=== PATIENT | female | born 1970 | race Caucasian/White ===

== ENCOUNTER 2019-01-18 08:35 | Observation (INO) | payer BC ==
[~2019-01-18] VITALS: Ht 162.6 cm; Wt 76.2 kg
[~2019-01-18 08:35] MED LIST: ELAVIL75 MG OR; FLEXERIL OR; LORTAB 5 OR; MEDDOSEPAK OR; NAPROSYN500 MG OR; PROVENTIL INH17 GM IN; ROBAXIN250 MG OR; TESSALON200 MG OR; ZITHROMAX500 MG OR
[2019-01-18 09:39] LABS: HEMATOCRIT 43.8 % (37.0-47.0); HEMOGLOBIN 14.4 g/dl (12.0-16.0); IMMATURE GRANULOCYTES 0.4 % (0.0-5.0); MEAN CELL VOLUME 85.7 fL CALC (80.0-100.0); MEAN CORPUSCULAR HGB 28.2 pG CALC (26.0-32.0); MEAN CORPUSCULAR HGB CONC 32.9 g/L CALC (32.0-36.0); NEUT# 11.57 thou/uL (2.00-7.15); RED BLOOD COUNT 5.11 mill/uL (4.20-5.60); RED CELL DISTRI WIDTH 13.6 % (11.5-15.5)
[2019-01-18] MEDS ORDERED: OXYCODONE HCL15 MG PO (10:05)
[2019-01-18] MEDS ORDERED: ACCUPRIL5 MG PO (10:06)
[2019-01-18 10:09] LABS: ALKALINE PHOSPHATASE 107 u/l (38-126); ANION GAP 17 (6-22 (CALC)); BILIRUBIN, TOTAL 0.4 mg/dL (0.0-1.4); BUN 12 mg/dL (7-17); BUN/CREATININE RATIO 18 (12-20 (CALC)); CARBON DIOXIDE 21 mmol/l (22-30); CHLORIDE 107 mmol/l (95-108); CREATININE 0.7 mg/dL (0.5-1.0); GFR > 60 ML/MIN (>=60 (CALC)); GFR FOR AFR.AMER. > 60 ML/MIN (>=60 (CALC)); LIPASE 92 u/l (23-300); POTASSIUM 4.2 mmol/l (3.5-5.1); SGOT/AST 35 u/l (14-36); SODIUM 140 mmol/l (137-146)
[2019-01-18 10:10] LABS: ALBUMIN 4.8 g/dL (3.2-5.0); TOTAL PROTEIN 8.2 g/dL (6.3-8.2)
[2019-01-18 10:20] LABS: D-DIMER 0.61 mg/L (0.19-0.60); PROTHROMBIN TIME 10.7 SECONDS (9.0-12.5)
[2019-01-18 14:35] VITALS: BP 141/76
[2019-01-18 19:20] VITALS: BP 106/60
[2019-01-19] VITALS (11 sets, daily range): BP systolic 104–142; BP diastolic 54–78
[2019-01-19 05:49] LABS: ALKALINE PHOSPHATASE 76 u/l (38-126); BILIRUBIN, TOTAL 0.5 mg/dL (0.0-1.4); BUN 9 mg/dL (7-17); BUN/CREATININE RATIO 15 (12-20 (CALC)); CARBON DIOXIDE 25 mmol/l (22-30); CHLORIDE 108 mmol/l (95-108); CREATININE 0.6 mg/dL (0.5-1.0); GFR > 60 ML/MIN (>=60 (CALC)); GFR FOR AFR.AMER. > 60 ML/MIN (>=60 (CALC)); SGOT/AST 31 u/l (14-36); SODIUM 141 mmol/l (137-146); TOTAL PROTEIN 6.6 g/dL (6.3-8.2)
[2019-01-19 05:50] LABS: ANION GAP 12 (6-22 (CALC)); POTASSIUM 4.4 mmol/l (3.5-5.1)
[2019-01-19 06:09] LABS: ALBUMIN 3.8 g/dL (3.2-5.0)
[2019-01-20 00:45] VITALS: BP 132/75
[2019-01-20 04:26] VITALS: BP 130/83
[2019-01-20 07:25] VITALS: BP 120/69
== END 2019-01-20 10:29 | disposition home or self-care (01) | DRG 419 ==
LOC: ED 08:35 → ED-I 13:53 → ED 14:16 → MS2 14:17
PROVIDERS: Emergency Medicine; ADMIT Surgery; ATTEND Surgery
PROC: 0FT44ZZ Resection of Gallbladder, Percutaneous Endoscopic Approach (ICD-10-PCS; principal; 2019-01-19)
DX: K81.0 Acute cholecystitis (principal); F17.210 Nicotine dependence, cigarettes, uncomplicated
CPT/HCPCS: G0378; J0131; J2710; Q9967

== ENCOUNTER 2021-04-29 20:16 | Emergency (ER) | payer BC ==
[~2021-04-29] VITALS: Ht 165.1 cm; Wt 85.5 kg
[~2021-04-29 20:16] MED LIST changes: +ACCUPRIL5 MG PO; +OXYCODONE HCL15 MG PO
[2021-04-29] MEDS ORDERED: LEVOTHYROXIN88 MC1 PO (20:37)
[2021-04-29] MEDS ORDERED: ELAVIL25 M1 PO (20:37)
[2021-04-29 21:15] LABS: URINE BILIRUBIN - DIPSTICK NEGATIVE (NEGATIVE); URINE BLOOD DIPSTICK LARGE (NEGATIVE); URINE COLOR YELLOW; URINE GLUCOSE - DIPSTICK NEGATIVE (NEGATIVE); URINE KETONE NEGATIVE (NEGATIVE); URINE PROTEIN - DIPSTICK TRACE mg/dL (NEG-TRACE); URINE SPECIFIC GRAVITY 1.025; URINE UROBILINOGEN - DIPSTICK 0.2 E.U./dL (0.2)
[2021-04-29 21:17] LABS: HEMATOCRIT 40.4 % (37.0-47.0); HEMOGLOBIN 13.1 g/dl (12.0-16.0); IMMATURE GRANULOCYTES 0.6 % (0.0-5.0); MEAN CORPUSCULAR HGB 28.5 pG CALC (26.0-32.0); MEAN CORPUSCULAR HGB CONC 32.4 g/dL CAL (32.0-36.0); NEUT# 10.02 thou/uL (2.00-7.15); RED BLOOD COUNT 4.59 mill/uL (4.20-5.60); RED CELL DISTRI WIDTH 13.4 % (11.5-15.5)
[2021-04-29 21:24] LABS: ALKALINE PHOSPHATASE 112 u/l (38-126); AMYLASE 58 u/l (30-110); ANION GAP 16 (6-22 (CALC)); BILIRUBIN, TOTAL 0.7 mg/dL (0.0-1.4); BUN 12 mg/dL (7-17); BUN/CREATININE RATIO 16 (12-20 (CALC)); CARBON DIOXIDE 20 mmol/l (22-30); CHLORIDE 104 mmol/l (95-108); CREATININE 0.8 mg/dL (0.5-1.0); GFR > 60 ML/MIN (>=60 (CALC)); GFR FOR AFR.AMER. > 60 ML/MIN (>=60 (CALC)); LIPASE 44 u/l (23-300); POTASSIUM 3.9 mmol/l (3.5-5.1); SGOT/AST 30 u/l (14-36); SODIUM 136 mmol/l (137-146); TOTAL PROTEIN 7.9 g/dL (6.3-8.2)
[2021-04-29 21:25] LABS: URINE LEUK ESTERASE MODERATE (NEGATIVE); URINE NITRITE - DIPSTICK NEGATIVE (Negative)
[2021-04-29 21:25] LABS: ALBUMIN 4.6 g/dL (3.2-5.0)
[2021-04-29 21:27] LABS: URINE BACTERIA FEW hpf; URINE MUCUS FEW hpf (NONE-FEW); URINE SQUAMOUS EPITHELIAL CELL FEW EPI/hpf (0-FEW)
[2021-04-29 21:36] LABS: MYOGLOBIN 38 ng/mL (0 - 62)
[2021-04-29] MEDS ORDERED: LORTAB5 PO (23:40)
[2021-04-29] MEDS ORDERED: TAMSULOSIN0.4 MG PO (23:40)
[2021-04-29] MEDS ORDERED: TORADOL PO (23:40)
[2021-04-29 23:58] VITALS: BP 166/83
== END 2021-04-29 23:58 | disposition home or self-care (01) | DRG 694 ==
LOC: ED 20:16
PROVIDERS: Family Medicine
DX: N20.0 Calculus of kidney (principal); F17.200 Nicotine dependence, unspecified, uncomplicated; Z85.850 Personal history of malignant neoplasm of thyroid; Z90.49 Acquired absence of other specified parts of digestive tract; Z20.822 Contact with and (suspected) exposure to COVID-19
CPT/HCPCS: Q9967; S0164

== ENCOUNTER 2024-10-30 18:02 | Emergency (ER) | payer BC ==
[~2024-10-30] VITALS: Ht 165.1 cm; Wt 78.0 kg
[2024-10-30] VITALS (7 sets, daily range): BP systolic 98–166; BP diastolic 55–87
[~2024-10-30 18:02] MED LIST changes: +ELAVIL25 M1 PO; +LEVOTHYROXIN88 MC1 PO; +LORTAB5 PO; +TAMSULOSIN0.4 MG PO; +TORADOL PO
[2024-10-30 18:30] LABS: BASO% 0.6 % (0-3); EOS% 2.3 % (0-8); HEMATOCRIT 36.7 % (37.0-47.0); HEMOGLOBIN 11.7 g/dl (12.0-16.0); LYMPH% 21.8 % (15-41); MEAN CELL VOLUME 88.2 fL CALC (80.0-100.0); MEAN CORPUSCULAR HGB 28.1 pG CALC (26.0-32.0); MEAN CORPUSCULAR HGB CONC 31.9 g/dL CAL (32.0-36.0); MONO% 7.2 % (2-13); NEUT# 4.54 thou/uL (2.00-7.15); NEUT% 68.1 % (42-76); RED BLOOD COUNT 4.16 mill/uL (4.20-5.60); RED CELL DISTRI WIDTH 13.1 % (11.5-15.5)
[2024-10-30 18:47] LABS: D-DIMER 0.49 mg/L (0.19-0.60)
[2024-10-30 18:48] LABS: PROTHROMBIN TIME 10.8 SECONDS (9.0-12.5)
== END 2024-10-30 19:26 | disposition home or self-care (01) | DRG 556 ==
LOC: ED 18:02
PROVIDERS: Family Medicine
DX: M79.651 Pain in right thigh (principal); C73 Malignant neoplasm of thyroid gland; E89.0 Postprocedural hypothyroidism; F17.200 Nicotine dependence, unspecified, uncomplicated